=== PATIENT | male | born 1935 | race Caucasian/White ===

== ENCOUNTER 2023-08-31 09:20 | Inpatient (IN) | payer MEDICARE, BC ==
[~2023-08-31] VITALS: Ht 162.6 cm; Wt 70.3 kg
[2023-08-31] MEDS: IV NORMAL SALINE 1000 ML BAG IV ONE (09:46)
[2023-08-31 09:56] LABS: BASOPHILS % (AUTO) 0.5 % (0.0-2.0); EOSINOPHILS % (AUTO) 0.9 % (0.0-7.0); HEMATOCRIT 38.4 % (36.7-47.1); HEMOGLOBIN 12.8 g/dL (12.5-16.3); LYMPHOCYTES # (AUTO) 1.4 K/uL (0.8-4.8); MEAN CORPUSCULAR HEMOGLOBIN 29.1 uug (23.8-33.4); MEAN CORPUSCULAR HGB CONC 33 g/dL (32.5-36.3); MEAN CORPUSCULAR VOLUME 87.1 fL (73.0-96.2); MONOCYTES # (AUTO) 0.7 K/uL (0.1-1.30); MONOCYTES % (AUTO) 13.3 % (0.0-11.0); NEUTROPHILS # (AUTO) 2.9 K/uL (1.8-8.9); NEUTROPHILS % (AUTO) 58.3 % (38.5-71.5); PLATELET COUNT (AUTO) 117 K/uL (152-348); RED BLOOD CELL COUNT(AUTO) 4.41 MIL/uL (4.06-5.63); RED CELL DISTRIBUTION WIDTH 14.9 % (12.1-16.2)
[2023-08-31 10:00] LABS: DIFFERENTIAL COMMENT 1
[2023-08-31 10:05] LABS: CALCIUM 8.2 mg/dL (8.5-10.1); CARBON DIOXIDE 24 mmol/L (21-32); CHLORIDE 104 mmol/L (98-107); CREATININE 1.3 mg/dL (0.6-1.3); GLUCOSE 143 mg/dL (74-106); POTASSIUM 3.6 mmol/L (3.5-5.1); SODIUM SERUM 139 mmol/L (136-145); UREA NITROGEN, BLOOD 16 mg/dL (7-18)
[2023-08-31] MEDS ORDERED: VERA240C2 PO (10:06)
[2023-08-31] MEDS ORDERED: RIVA15TA2 PO (10:06)
[2023-08-31 10:17] LABS: ALANINE AMINOTRANSFERASE 9 U/L (16-63); ALBUMIN 3.3 g/dL (3.4-5.0); ALKALINE PHOSPHATASE 71 U/L (50-136); ASPARTATE AMINOTRANSFERASE 36 U/L (15-37); BILIRUBIN,DIRECT 0.3 mg/dL (0.0-0.2); TOTAL PROTEIN, SERUM 6.2 g/dL (6.4-8.2)
[2023-08-31] MEDS: CALCIUM GLUCONATE IV 1 GM in IV DEXTROSE 5% 50 ML IV ONE (10:31)
[2023-08-31] MEDS ORDERED: NEOMY/BACITRA/POLYMYXIN B OINT UD PACKET TP ONE (10:46)
[2023-08-31] MEDS: NEOMY/BACITRA/POLYMYXIN B OINT UD PACKET TP ONE (11:03)
[2023-08-31] MEDS ORDERED: MAGNESIUM HYDROXIDE 30 ML LIQUID UDC PO PRN (12:00)
[2023-08-31] MEDS ORDERED: REMEDY ESSENTIAL ZINC PASTE 113 GM TP PRN (12:00)
[2023-08-31] MEDS ORDERED: ONDANSETRON 4 MG/2 ML VIAL IV PRN (12:00)
[2023-08-31 12:42] VITALS: BP 124/62; TEMP 99.2; O2SAT 95
[2023-08-31] MEDS ORDERED: GUAIFENESIN/DEXTROMETHORPHAN 5 ML UDC PO PRN (13:00)
[2023-08-31] MEDS: BENZOCAINE/MENTH/CETYLPYRD LOZENGE MM PRN (13:06)
[2023-08-31] MEDS: IV NS 1000 ML 1,000 ML IV PRN (14:30)
[2023-08-31 16:09] VITALS: BP 100/64; TEMP 99.8; O2SAT 98
[2023-08-31] MEDS: ACETAMINOPHEN 325 MG TABLET PO PRN (20:18)
[2023-08-31 20:41] VITALS: BP 119/58; TEMP 99.4; O2SAT 98
[2023-09-01 00:10] VITALS: BP 139/95; TEMP 98.7; O2SAT 97
[2023-09-01 05:15] VITALS: BP 157/92; TEMP 98.1; O2SAT 97
[2023-09-01 07:19] LABS: BASOPHILS % (AUTO) 0.6 % (0.0-2.0); EOSINOPHILS # (AUTO) 0.1 K/uL (0.0-0.7); EOSINOPHILS % (AUTO) 2.2 % (0.0-7.0); HEMATOCRIT 38.1 % (36.7-47.1); HEMOGLOBIN 12.7 g/dL (12.5-16.3); LYMPHOCYTES # (AUTO) 1.1 K/uL (0.8-4.8); MEAN CORPUSCULAR HEMOGLOBIN 29.3 uug (23.8-33.4); MEAN CORPUSCULAR HGB CONC 34 g/dL (32.5-36.3); MEAN CORPUSCULAR VOLUME 87.5 fL (73.0-96.2); MONOCYTES # (AUTO) 0.6 K/uL (0.1-1.30); MONOCYTES % (AUTO) 18.2 % (0.0-11.0); NEUTROPHILS # (AUTO) 1.7 K/uL (1.8-8.9); PLATELET COUNT (AUTO) 106 K/uL (152-348); RED BLOOD CELL COUNT(AUTO) 4.35 MIL/uL (4.06-5.63); RED CELL DISTRIBUTION WIDTH 14.7 % (12.1-16.2); WHITE BLOOD COUNT (AUTO) 3.5 K/uL (3.6-10.2)
[2023-09-01 07:32] LABS: CALCIUM 8.2 mg/dL (8.5-10.1); CARBON DIOXIDE 27 mmol/L (21-32); CHLORIDE 109 mmol/L (98-107); GLUCOSE 93 mg/dL (74-106); MAGNESIUM 1.9 mg/dL (1.8-2.4); PHOSPHOROUS 3.1 mg/dL (2.5-4.9); POTASSIUM 3.9 mmol/L (3.5-5.1); SODIUM SERUM 142 mmol/L (136-145); UREA NITROGEN, BLOOD 15 mg/dL (7-18)
[2023-09-01 08:00] VITALS: BP 146/87; TEMP 98; O2SAT 98
[2023-09-01 08:04] LABS: DIFFERENTIAL COMMENT 1
[2023-09-01] MEDS: RIVAROXABAN 15 MG TABLET PO SCH (08:41)
[2023-09-01] MEDS ORDERED: VERA180T24 PO (11:29)
[2023-09-01 12:00] VITALS: BP 138/76; TEMP 98.3; O2SAT 97
[2023-09-01 12:41] VITALS: BP 138/76
[2023-09-01] MEDS: VERAPAMIL SR 180 MG TABLET.SA PO SCH (12:41)
== END 2023-09-01 15:00 | disposition home or self-care (01) | DRG 641 ==
LOC: ER 09:20 → TELE3 12:07
PROVIDERS: ADMIT Internal Medicine; ATTEND Internal Medicine
DX: E86.0 Dehydration (principal); E44.0 Moderate protein-calorie malnutrition; I48.20 Chronic atrial fibrillation, unspecified; E88.09 Other disorders of plasma-protein metabolism, not elsewhere classified; R79.89 Other specified abnormal findings of blood chemistry; Z79.01 Long term (current) use of anticoagulants; I95.1 Orthostatic hypotension; R00.1 Bradycardia, unspecified; J06.9 Acute upper respiratory infection, unspecified; I87.2 Venous insufficiency (chronic) (peripheral); I10 Essential (primary) hypertension; Z79.899 Other long term (current) drug therapy; I87.8 Other specified disorders of veins
CPT/HCPCS: 36415; 71045; 83735; 84100; 84443; 84484; 85025; 93005; A4606; A4663; G0378; J7040